=== PATIENT | female | born 1980 | race Caucasian/White ===

== ENCOUNTER 2017-08-13 11:49 | Outpatient (CLI) | payer MEDICARE, MEDICAID ==
[~2017-08-13] VITALS: Ht 157.5 cm; Wt 104.5 kg
[2017-08-13] VITALS (8 sets, daily range): BP systolic 145–160; BP diastolic 94–116; PULSE 75–94; TEMP 97.1
[~2017-08-13 11:49] MED LIST: FIORICET 325 MG1 TA1 PO; FLEXERIL 1010 MG/TAB PO; TOPAMAX 100MG100 M1 PO
[2017-08-13 14:07] LABS: GLUCOSE,CSF 55 mg/dL (40-70); TOTAL PROTEIN,CSF 44 mg/dL (15-45)
[2017-08-13 14:27] LABS: CSF APPEARANCE CLEAR; CSF COLOR COLORLESS; CSF RBC 0 /mm3 (0-0)
[2017-08-13 14:48] LABS: CSF MONONUCLEAR 100 % (70-100); CSF POLYMORPHONUCLEAR 0 % (0-6)
== END 2017-08-13 15:03 | disposition home or self-care (01) ==
LOC: COL.RAD 11:49
PROVIDERS: Psychiatry & Neurology Neurology
DX: G93.2 Benign intracranial hypertension (principal)